=== PATIENT | male | born 1995 | race Caucasian/White ===

== ENCOUNTER 2016-09-19 17:29 | Emergency (ER) | payer OTHER ==
[2016-09-19 17:39] VITALS: BMI 23.5
[2016-09-19 17:45] VITALS: TEMP 98.2
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
[2016-09-19 23:44] VITALS: BP 111/64; PULSE 74; RESP 18; O2SAT 100
--- NOTE | 2016-09-20 10:09 | RAD ---
HISTORY: upper back pain COMPARISON: No prior. TECHNIQUE: Chest PA and lateral FINDINGS: LUNGS: No active pulmonary disease. PLEURA: No significant pleural effusion identified. No pneumothorax apparent. CARDIOVASCULAR: Normal. OSSEOUS STRUCTURES: No significant abnormalities. VISUALIZED UPPER ABDOMEN: Normal. OTHER FINDINGS: None. IMPRESSION: No active disease.
== END 2016-09-19 19:25 | disposition home or self-care (01) ==
LOC: ED 17:29
DX: S46.812A Strain of other muscles, fascia and tendons at shoulder and upper arm level, left arm, initial encounter (principal); V49.9XXA Car occupant (driver) (passenger) injured in unspecified traffic accident, initial encounter